=== PATIENT | female | born 1955 | race Caucasian/White ===

== ENCOUNTER 2017-09-22 23:02 | Emergency (ER) | payer SELFPAY ==
[~2017-09-22] VITALS: Ht 157.5 cm; Wt 49.1 kg
[2017-09-22 23:09] VITALS: BP 132/68
== END 2017-09-23 01:15 | disposition left against medical advice (07) ==
LOC: EMS 23:06
DX: F41.9 Anxiety disorder, unspecified (principal); Z53.21 Procedure and treatment not carried out due to patient leaving prior to being seen by health care provider